=== PATIENT | female | born 1970 | race Caucasian/White ===

== ENCOUNTER 2020-07-06 12:18 | Emergency (ER) | payer SELFPAY ==
[2020-07-06 13:17] VITALS: BP 141/81
--- NOTE | 2020-07-06 13:18 | NUR ---
[facility] in ED - 07/06/20 at 1327 by [facility] triaged and waiting in lobby.
--- NOTE | 2020-07-06 13:27 | NUR ---
called x 3 times and answer.
--- NOTE | 2020-07-06 13:28 | NUR ---
PATIENT LEFT WITHOUT BEING SEEN or triaged BY . NO FURTHER CARE PROVIDED FOR PATIENT.
== END 2020-07-06 13:28 | disposition left against medical advice (07) ==
LOC: MED 12:18
DX: Z53.21 Procedure and treatment not carried out due to patient leaving prior to being seen by health care provider (principal)

== ENCOUNTER 2023-12-07 15:09 | Emergency (ER) | payer OTHER ==
[~2023-12-07] VITALS: Ht 162.6 cm; Wt 61.2 kg
[2023-12-07 15:10] VITALS: BP 106/64; PULSE 101; RESP 16; TEMP 97.6; O2SAT 100
[2023-12-07 15:55] VITALS: O2SAT 100
[2023-12-07] MEDS: KETOROLAC 30 MG/ML VIAL IM ONE (16:04)
[2023-12-07 16:31] LABS: APPEARANCE,URINE CLEAR (CLEAR); BILIRUBIN,URINE NEGATIVE (NEGATIVE); BLOOD, URINE 2+ (NEGATIVE); COLOR,URINE YELLOW (YELLOW); LEUKOCYTE ESTERASE ,URINE NEGATIVE (NEGATIVE); NITRITE, URINE NEGATIVE (NEGATIVE); PROTEIN,URINE NEGATIVE (NEGATIVE); UGLUCOSE NEGATIVE (NEGATIVE); UROBILINOGEN,URINE 0.2 EU/dL (0.2 - 1)
[2023-12-07 16:47] LABS: BACTERIA,URINE 10-30 (MOD) /HPF (None Seen); MUCUS,URINE 1+ /LPF (None Seen); RBC,URINE 11-20 (MOD) /HPF (0-5); SQUAMOUS EPITHELIAL CELL,UR 0-3 (FEW) /LPF (0-3 (FEW)); TRICHOMONAS,URINE None Seen /HPF (None Seen); WHITE BLOOD CELL CASTS,URINE None Seen /LPF (None Seen); YEAST,URINE None Seen /HPF (None Seen)
[2023-12-07 16:48] LABS: CALCIUM OXALATE CRYSTALS,UR 0-10 /HPF (None Seen)
[2023-12-07] MEDS: ACETAMINOPHEN EXTRA STRENGTH 500 MG TAB PO ONE (16:57)
[2023-12-07 17:07] LABS: BASOPHILS % (AUTO) 0.7 % (0.0-2.0); EOSINOPHILS # (AUTO) 0.1 K/uL (0-0.4); EOSINOPHILS % (AUTO) 1.4 % (0.0-4.0); HEMATOCRIT 35.7 % (36-48); HEMOGLOBIN 11.9 g/dL (12.0-16.0); LYMPHOCYTES # (AUTO) 1.9 K/uL (2.5-16.5); LYMPHOCYTES % (AUTO) 28.6 % (20.5-51.1); MEAN CORPUSCULAR HEMOGLOBIN 27 pg (27-31); MEAN CORPUSCULAR HGB CONC 33 g/dL (33-37); MEAN CORPUSCULAR VOLUME 81.3 fL (80-94); MONOCYTES # (AUTO) 0.6 K/uL (0.8-1.0); MONOCYTES % (AUTO) 8.4 % (1.7-9.3); NEUTROPHILS % (AUTO) 60.9 % (42.2-75.2); PLATELET COUNT (AUTO) 192 K/uL (140-450); RED BLOOD CELL COUNT(AUTO) 4.39 MIL/uL (4.20-5.40); RED CELL DISTRIBUTION WIDTH 13.6 % (11.6-13.7); WHITE BLOOD COUNT (AUTO) 6.6 K/uL (4.8-10.8)
[2023-12-07 17:17] LABS: ANION GAP 9.8 (8-16); CALCIUM 9.8 mg/dL (8.5-10.1); CREATININE 0.5 mg/dL (0.6-1.3); POTASSIUM 3.8 mmol/L (3.5-5.1)
[2023-12-07] MEDS ORDERED: CEPH250C16 PO (17:22)
[2023-12-07] MEDS ORDERED: ACET-10509 PO (17:22)
[2023-12-07 17:34] VITALS: BP 112/62; PULSE 77; RESP 16; TEMP 98; O2SAT 99
== END 2023-12-07 17:34 | disposition home or self-care (01) ==
LOC: MED 15:09
DX: D25.1 Intramural leiomyoma of uterus (principal); N30.00 Acute cystitis without hematuria; Z79.1 Long term (current) use of non-steroidal anti-inflammatories (NSAID); Z79.2 Long term (current) use of antibiotics
CPT/HCPCS: 36415; 76856; 80048; 81001; 81025; 85025; 87086; 99284; Q0092